=== PATIENT | female | born 1970 | race Caucasian/White ===

== ENCOUNTER → 2016-09-18 | Outpatient (CLI) | payer OTHER | LOC: ULTRA 08:53 | DX: D24.9 Benign neoplasm of unspecified breast (principal); N63 Unspecified lump in breast ==

== ENCOUNTER → 2017-03-26 | Outpatient (CLI) | payer OTHER | LOC: RAD 03-19 02:46 | DX: Z12.31 Encounter for screening mammogram for malignant neoplasm of breast (principal) ==

== ENCOUNTER → 2018-03-30 | Outpatient (CLI) | payer OTHER | LOC: RAD 00:16 | DX: Z12.31 Encounter for screening mammogram for malignant neoplasm of breast (principal) ==

== ENCOUNTER → 2019-09-13 | Outpatient (CLI) | payer OTHER | LOC: RAD 09:35 | DX: Z12.31 Encounter for screening mammogram for malignant neoplasm of breast (principal) ==